=== PATIENT | female | born 1990 | race Caucasian/White ===

== ENCOUNTER 2016-10-12 10:01 | Day surgery (SDC) | payer OTHER ==
--- NOTE | 2016-10-04 15:40 | HP ---
PREOPERATIVE HISTORY AND PHYSICAL: DATE OF SURGERY/ADMISSION: 10/12/16 [facility] ATTENDING SURGEON: Amalia Guillen MD * (DICTATED BY AISLINN CONDE) PROCEDURE: Right wrist hardware removal. DATE OF OFFICE VISIT/ENCOUNTER: 10/04/16 CHIEF COMPLAINT: Painful hardware, right wrist. HISTORY OF PRESENT ILLNESS: This is a 26-year-old female who underwent a right distal radius ORIF approximately [address] Guillen. The hardware is now painful. She has swelling and pain just ulnar to her incision that radiates into the palm of her hand. Often times the symptoms increase with use and decrease with rest but the pain and swelling are quite persistent and bothersome and preventing her from participating in activities that she would like to do. She would like to have the hardware removed at this time from her right wrist. PAST MEDICAL HISTORY: Unremarkable. PAST SURGICAL HISTORY: 1. Right wrist open reduction internal fixation. 2. [place] teeth extraction. CURRENT MEDICATIONS: Metronidazole 0.75% p.r.n. ALLERGIES: No known drug allergies. FAMILY MEDICAL HISTORY: Noncontributory. 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 She denies tobacco use and recreational drug use. She does admit to alcohol use on occasion. REVIEW OF SYSTEMS: General: Negative for fevers, chills, or night sweats. No known anesthesia problems. HEENT: Negative for headache, lightheadedness, or syncopal episodes. Integumentary: Negative for abrasions, lesions, or open wounds. Cardiothoracic: Negative for hypertension, chest pain, palpitations, or edema. Pulmonary: Negative for shortness of breath with exertion, chronic cough, or COPD. GI: Negative for nausea, vomiting, diarrhea, constipation, or GERD. : Negative for nocturia, urinary frequency, urgency, history of UTIs, or kidney problems. Musculoskeletal: Positive for current complaint. Negative for chronic or intermittent back pain. Neurologic: Negative for paresthesias, numbness, history of seizures, stroke, or epilepsy. Endocrine: Negative for diabetes or thyroid issues. Hematologic: Negative for easy bruising, anemia, excessive bleeding, or history of DVT. Infectious Disease: Negative for history of MRSA, hepatitis C, or HIV. PHYSICAL EXAMINATION GENERAL: Well-developed, well-nourished 26-year-old female in no acute distress. VITAL SIGNS: Height is 5 feet 5 inches, weight 120 pounds, pulse rate 70, blood pressure 109/71. HEENT: Normocephalic, atraumatic. Pupils are equal, round, and reactive to light and accommodation. Extraocular movements are intact. NECK: Supple. No palpable lymph nodes. Throat is clear. PULMONARY: Lungs are clear to auscultation bilaterally. No wheezes, rales, or rhonchi. HEART: Cardiothoracic, regular rate and rhythm. S1 and S2. No murmurs, rubs, or gallops. No edema. ABDOMEN: Positive bowel sounds, soft, nontender. NEUROLOGIC: Alert and oriented x3. Cranial nerves II through XII are intact. Sensation is intact to light touch. PERIPHERAL VASCULAR: 2+ radial and ulnar pulses. MUSCULOSKELETAL: On exam of her right wrist, she has a well-healed surgical incision on the volar aspect and she has full range of motion of her wrist. There is no visible swelling. She has full flexion and extension of her fingers with no pain and no pain with wrist motion. Neurovascular function is intact. IMPRESSION: Painful hardware, right wrist, status post open reduction internal fixation of the distal radius. PLAN: The patient is scheduled to undergo a right wrist hardware removal with Dr. Guillen on 10/12/16. She will return to the office in 10 to 14 days postop for followup and suture removal. A prescription for Ultracet was e-scribed to the patient's pharmacy for postoperative pain management. AISLINN CONDE [id number]/[facility] #: [id number] B[place]NIE
[~2016-10-12 10:01] MED LIST: Acetaminophen TAB* 325 MG PO PRN; DiMENhydriNATE IV* 50 MG/ML VIAL IV PUSH PRN; Famotidine IV* 10 MG/ML 2 ML (20 mg) IV ONE; HYDROcodone/ACETAMIN 5-325 MG* 1 TAB PO PRN; HYDROmorphone* 1 MG/ML 1 ML SYR IV PRN; Lidocaine 1% INJ* 10 MG/ML 30 ML SDV ONE
[2016-10-12] MEDS ORDERED: fentaNYL* 50 MCG/ML 2 ML VIAL (100 MCG VIAL) ONE (10:03)
[2016-10-12] MEDS ORDERED: Midazolam* 1 MG/ML 5 ML VIAL (5 MG) ONE (10:03)
[2016-10-12] MEDS ORDERED: Propofol* 10 MG/ML 20 ML BTL IV PUSH ONE (10:10)
[2016-10-12] MEDS ORDERED: Dexamethasone IV* 4 MG/ML 1 ML (4 MG) ONE (10:10)
[2016-10-12] MEDS ORDERED: Ketorolac INJ* 30 MG/ML 1 ML VIAL ONE (10:10)
[2016-10-12] MEDS ORDERED: Ondansetron INJ* 2 MG/ML VIAL ONE (10:10)
[2016-10-12] MEDS ORDERED: Lidocaine 2% PF * 5 ML VIAL ONE (10:10)
[2016-10-12] MEDS ORDERED: Famotidine IV* 10 MG/ML 2 ML (20 mg) ONE (10:16)
[2016-10-12] MEDS ORDERED: Buffered Lidocaine 1% SYRIN* 5 ML/SYR SYRINGE ONE (10:16)
[2016-10-12] MEDS ORDERED: Bupivacaine 0.5% SDV PF* 30 ML VIAL ONE (10:39)
[2016-10-12] MEDS ORDERED: DiMENhydriNATE IV* 50 MG/ML VIAL ONE (10:50)
[2016-10-12 12:10] VITALS: BP 103/69
[2016-10-12] MEDS ORDERED: HYDROcodone/ACETAMIN 5-325 MG* 1 TAB ONE (12:13)
--- NOTE | 2016-10-13 01:42 | OP ---
DATE OF OPERATION: 10/12/16 [facility] DATE OF : 88 SURGEON: Amalia Guillen MD INTERNATIONAL STUDENT COUNSELOR: AISLINN Mcintosh ANESTHESIOLOGIST: Janene Henry MD ANESTHESIA: General. PRE-OP DIAGNOSIS: Painful hardware of the right wrist. POST-OP DIAGNOSIS: Painful hardware of the right wrist. OPERATIVE PROCEDURE: Removal of hardware, right wrist. ESTIMATED BLOOD LOSS: Zero. TOURNIQUET TIME: 30 minutes. INDICATION FOR PROCEDURE: Karolina is a 26-year-old female who had an ORIF of her distal radius. She is very thin and the hardware is painful for her. She presents for hardware removal of the right wrist. DESCRIPTION OF PROCEDURE: The patient was brought to the operating room and was given a general anesthetic and placed in supine position on the operating table with the tourniquet around her right upper arm. Skin of her right upper extremity was prepped and draped in the usual sterile fashion. The area of the incision was infiltrated with 10 cc of Marcaine 0.5% plain. The previous scar was incised and we dissected sharply through the subcutaneous tissue through the FCR tendon sheath. The FPL muscle was retracted and the pronator quadratus was incised longitudinally. With elevators, the plate was completely exposed and then all of the screws and plate were removed. The screw holes and the edges where the bone had grown over the plate were debrided with a rongeur. Wound was copiously irrigated with saline. Pronator quadratus was repaired with 3-0 Polysorb suture. The FCR tendon sheath repaired with 3-0 Polysorb suture and the skin edges reapproximated with 4-0 nylon suture. The wound was dressed with Xeroform, 4x4, Webril, and an Lloyd wrap. The patient tolerated the procedure well and was brought to the recovery room in good condition. [id number]/[facility] #: [id number] MTDD
== END 2016-10-12 12:32 | disposition home or self-care (01) ==
LOC: OREAST 10:01
PROVIDERS: ATTEND Orthopaedic Surgery
DX: T84.84XA Pain due to internal orthopedic prosthetic devices, implants and grafts, initial encounter (principal); Y83.1 Surgical operation with implant of artificial internal device as the cause of abnormal reaction of the patient, or of later complication, without mention of misadventure at the time of the procedure; S52.501S Unspecified fracture of the lower end of right radius, sequela; X58.XXXS Exposure to other specified factors, sequela
CPT/HCPCS: 88300; J1100; J1240; J1885; J2001; J2250; J2405; J2704; J3010